=== PATIENT | female | born 1980 | race Caucasian/White ===

== ENCOUNTER 2019-10-03 07:53 | Emergency (ER) | payer MEDICARE, OTHER ==
[~2019-10-03] VITALS: Ht 170.2 cm; Wt 86.4 kg
[2019-10-03 08:06] VITALS: BP 123/80
[2019-10-03] MEDS ORDERED: BUPR1FIL3 SL (08:09)
== END 2019-10-03 10:07 | disposition home or self-care (01) ==
LOC: EMS 07:53
DX: J44.9 Chronic obstructive pulmonary disease, unspecified (principal); F17.210 Nicotine dependence, cigarettes, uncomplicated; Z79.899 Other long term (current) drug therapy